=== PATIENT | male | born 1960 | race Caucasian/White ===

== ENCOUNTER 2023-12-12 17:05 | Inpatient (IN) | payer OTHER ==
[2023-12-12 17:49] VITALS: BMI 19.8
[2023-12-12] MEDS ORDERED: IBUPROFEN 400 MG TABLET (FP) PO PRN (18:50)
[2023-12-12] MEDS ORDERED: NICOTINE POLACRILEX 2 MG GUM BUC PRN (18:50)
[2023-12-12] MEDS ORDERED: guaiFENesin 600 MG TABLET.ER (FP) PO PRN (18:50)
[2023-12-12] MEDS ORDERED: LOPERAMIDE HCL 2 MG CAPSULE PO PRN (18:50)
[2023-12-12] MEDS ORDERED: P-EPHED 60MG/TRIPROLIDI 2.5MG TABLET PO PRN (18:50)
[2023-12-12] MEDS ORDERED: POLYETHYLENE GLYCOL (HEALTHYLAX) 3350 17 GM PACKET PO PRN (18:50)
[2023-12-12] MEDS ORDERED: ACETAMINOPHEN 325 MG TABLET (FP) PO PRN (18:50)
[2023-12-12] MEDS ORDERED: DICYCLOMINE HCL 10 MG CAPSULE PO PRN (18:50)
[2023-12-12] MEDS ORDERED: BENZONATATE 200 MG CAPSULE PO PRN (18:50)
[2023-12-12] MEDS ORDERED: BISMUTH SUBSALICYLATE 524 MG/30 ML PO PRN (18:50)
[2023-12-12] MEDS ORDERED: MAGNESIUM HYDROX 2400MG/30ML ORAL SUSPENSION 30 ML CUP PO PRN (18:50)
[2023-12-12] MEDS ORDERED: BENZOCAINE/MENTHOL (CHLORASEPTIC ) LOZENGE MM PRN (18:50)
[2023-12-12] MEDS ORDERED: ONDANSETRON *ODT* 4 MG TABLET SL PRN (18:50)
[2023-12-12] MEDS ORDERED: MELATONIN 5 MG TABLETS PO SCH (22:00)
[2023-12-12] MEDS: THIAMINE HCL 100 MG TABLET (FP) PO SCH (22:19)
[2023-12-13] MEDS ORDERED: chlordiazePOXIDE HCL 25 MG CAPSULE PO PRN (10:12)
[2023-12-13] MEDS: PRENATAL VITAMINS W/ FOLIC ACID TABLET (FP) PO SCH (10:30)
[2023-12-13] MEDS: chlordiazePOXIDE HCL 25 MG CAPSULE PO SCH ×3 (10:30→22:26)
[2023-12-13] MEDS: METHOCARBAMOL 500 MG TABLET PO PRN ×2 (10:31→22:28)
[2023-12-13 11:03] LABS: HEMOGLOBIN 13.3 GM/dL (11.7-16.9); MCH 31.8 pg (25.7-33.7); MCHC 34.2 g/dl (32.0-35.9); MEAN CELL VOLUME 93.1 fl (80-96); MEAN PLT VOLUME 7.5 fl (7.5-11.1); PLATELET COUNT 179 10^3/uL (134-434); RBC 4.19 M/mm3 (4.00-5.60); RDW 15.9 % (11.9-15.9); WHITE BLOOD COUNT 3.5 K/mm3 (4.0-10.0)
[2023-12-13] MEDS: NICOTINE 14 MG/24 HOURS TOPICAL PATCH TD SCH (11:20)
[2023-12-13 11:43] LABS: POTASSIUM 3.8 mmol/L (3.5-5.1)
[2023-12-13 11:45] LABS: BLOOD UREA NITROGEN 23.3 mg/dL (7-18); CALCIUM 9.5 mg/dL (8.5-10.1)
[2023-12-13 11:46] LABS: ALBUMIN 3.2 g/dl (3.4-5.0)
[2023-12-13 11:49] LABS: CREATININE 0.7 mg/dL (0.55-1.3)
[2023-12-13 11:50] LABS: BILIRUBIN,TOTAL 1.1 mg/dL (0.2-1); TOT PROT 8.8 g/dl (6.4-8.2)
[2023-12-13] MEDS: THIAMINE HCL 100 MG TABLET (FP) PO SCH (22:26)
[2023-12-13] MEDS: SUVOREXANT 10 MG TABLET PO PRN (22:27)
[2023-12-14] MEDS: chlordiazePOXIDE HCL 25 MG CAPSULE PO SCH ×2 (05:49→10:22)
[2023-12-14] MEDS: PRENATAL VITAMINS W/ FOLIC ACID TABLET (FP) PO SCH (10:22)
[2023-12-14] MEDS: NICOTINE 14 MG/24 HOURS TOPICAL PATCH TD SCH (10:22)
[2023-12-14] MEDS: IBUPROFEN 600 MG TABLET (FP) PO PRN (10:24)
[2023-12-14] MEDS: LORazepam 1 MG TABLET PO PRN (13:33)
[2023-12-14] MEDS: LORazepam 2 MG TABLET PO SCH ×2 (17:26→22:10)
[2023-12-14] MEDS: ATORVASTATIN CA 40 MG TABLET (FP) PO SCH (22:10)
[2023-12-14] MEDS: THIAMINE HCL 100 MG TABLET (FP) PO SCH (22:10)
[2023-12-14] MEDS: SUVOREXANT 10 MG TABLET PO PRN (22:11)
[2023-12-14] MEDS: METHOCARBAMOL 500 MG TABLET PO PRN (22:12)
[2023-12-15] MEDS ORDERED: chlordiazePOXIDE HCL 25 MG CAPSULE PO SCH (05:00)
[2023-12-15] MEDS: LORazepam 1 MG TABLET PO SCH ×4 (05:34→22:03)
[2023-12-15] MEDS ORDERED: HYDROCHLOROTHIAZIDE 50 MG TABLET PO SCH (10:00)
[2023-12-15] MEDS ORDERED: PATIENT'S OWN MEDICATION (NON-FORMULARY) (Doravirine/Lamivu/Tenofov Diso [Delstrigo 100-30 PO SCH (10:00)
[2023-12-15] MEDS ORDERED: PATIENT'S OWN MEDICATION (NON-FORMULARY) (Omeprazole 20 MG Capsule.Dr) PO SCH (10:00)
[2023-12-15] MEDS: PRENATAL VITAMINS W/ FOLIC ACID TABLET (FP) PO SCH (10:03)
[2023-12-15] MEDS: ASPIRIN 81 MG CHEWABLE TABLETS PO SCH (10:03)
[2023-12-15] MEDS: FINASTERIDE 5 MG TABLET (FP) PO SCH (10:04)
[2023-12-15] MEDS: LISINOPRIL 20 MG TABLET PO SCH (10:04)
[2023-12-15] MEDS: HYDROCHLOROTHIAZIDE 25 MG TABLET (FP) PO SCH (10:04)
[2023-12-15] MEDS: PANTOPRAZOLE 40 MG TABLET PO SCH (10:04)
[2023-12-15] MEDS: IBUPROFEN 600 MG TABLET (FP) PO PRN (10:04)
[2023-12-15] MEDS: amLODIPine BESYLATE 10 MG TABLET (FP) PO SCH (10:04)
[2023-12-15] MEDS: TAMSULOSIN HCL 0.4 MG CAP PO SCH (10:04)
[2023-12-15] MEDS: NICOTINE 14 MG/24 HOURS TOPICAL PATCH TD SCH (10:06)
[2023-12-15] MEDS: LORazepam 2 MG TABLET PO SCH (11:51)
[2023-12-15] MEDS: LORazepam 1 MG TABLET PO PRN (13:31)
[2023-12-15] MEDS: MAG HYDROX/AL HYDROX/SIMETH 30 ML UNIT-DOSE CUP PO PRN (13:31)
[2023-12-15 15:09] LABS: ALBUMIN 3.4 g/dl (3.4-5.0)
[2023-12-15 15:11] LABS: BILIRUBIN,DIRECT 0.3 mg/dL (0.0-0.2)
[2023-12-15 15:13] LABS: BILIRUBIN,TOTAL 0.5 mg/dL (0.2-1); TOT PROT 8.5 g/dl (6.4-8.2)
[2023-12-15] MEDS ORDERED: ATORVASTATIN CA 20 MG TABLET (FP) ONE (20:49)
[2023-12-15] MEDS: SUVOREXANT 10 MG TABLET PO PRN (22:01)
[2023-12-15] MEDS: THIAMINE HCL 100 MG TABLET (FP) PO SCH (22:01)
[2023-12-15] MEDS: ATORVASTATIN CA 40 MG TABLET (FP) PO SCH (22:02)
[2023-12-15] MEDS: METHOCARBAMOL 500 MG TABLET PO PRN (22:03)
[2023-12-16] MEDS ORDERED: LORazepam 0.5 MG TABLET PO PRN
[2023-12-16] MEDS ORDERED: chlordiazePOXIDE HCL 10 MG CAPSULE PO PRN
[2023-12-16] MEDS ORDERED: chlordiazePOXIDE HCL 10 MG CAPSULE PO SCH (05:00)
[2023-12-16] MEDS: LORazepam 0.5 MG TABLET PO SCH ×4 (05:10→22:13)
[2023-12-16] MEDS: LISINOPRIL 20 MG TABLET PO SCH (10:03)
[2023-12-16] MEDS: PRENATAL VITAMINS W/ FOLIC ACID TABLET (FP) PO SCH (10:03)
[2023-12-16] MEDS: amLODIPine BESYLATE 10 MG TABLET (FP) PO SCH (10:03)
[2023-12-16] MEDS: TAMSULOSIN HCL 0.4 MG CAP PO SCH (10:03)
[2023-12-16] MEDS: ASPIRIN 81 MG CHEWABLE TABLETS PO SCH (10:03)
[2023-12-16] MEDS: FINASTERIDE 5 MG TABLET (FP) PO SCH (10:03)
[2023-12-16] MEDS: HYDROCHLOROTHIAZIDE 25 MG TABLET (FP) PO SCH (10:04)
[2023-12-16] MEDS: NICOTINE 14 MG/24 HOURS TOPICAL PATCH TD SCH (10:04)
[2023-12-16] MEDS: PANTOPRAZOLE 40 MG TABLET PO SCH (10:04)
[2023-12-16] MEDS: MAG HYDROX/AL HYDROX/SIMETH 30 ML UNIT-DOSE CUP PO PRN (17:23)
[2023-12-16] MEDS ORDERED: ATORVASTATIN CA 20 MG TABLET (FP) ONE (21:05)
[2023-12-16] MEDS: THIAMINE HCL 100 MG TABLET (FP) PO SCH (22:12)
[2023-12-16] MEDS: METHOCARBAMOL 500 MG TABLET PO PRN (22:12)
[2023-12-16] MEDS: ATORVASTATIN CA 40 MG TABLET (FP) PO SCH (22:13)
[2023-12-17] MEDS ORDERED: LORazepam 0.5 MG TABLET PO ONE (05:00)
[2023-12-17] MEDS ORDERED: chlordiazePOXIDE HCL 10 MG CAPSULE PO SCH (05:00)
[2023-12-17 05:52] VITALS: TEMP 97.8
[2023-12-17 09:03] VITALS: BP 131/81; PULSE 81; RESP 18
[2023-12-18] MEDS ORDERED: chlordiazePOXIDE HCL 10 MG CAPSULE PO ONE (05:00)
== END 2023-12-17 09:36 | disposition home or self-care (01) | DRG 775 ==
LOC: YASAS 17:05 → Y3N 18:22
PROVIDERS: ADMIT Allergy & Immunology; ATTEND Allergy & Immunology
PROC: HZ2ZZZZ Detoxification Services for Substance Abuse Treatment (ICD-10-PCS; principal; 2023-12-12)
DX: F10.230 Alcohol dependence with withdrawal, uncomplicated (principal); F17.210 Nicotine dependence, cigarettes, uncomplicated; F10.282 Alcohol dependence with alcohol-induced sleep disorder; F10.280 Alcohol dependence with alcohol-induced anxiety disorder; F10.24 Alcohol dependence with alcohol-induced mood disorder; Z21 Asymptomatic human immunodeficiency virus [HIV] infection status; E78.5 Hyperlipidemia, unspecified; I10 Essential (primary) hypertension; K74.60 Unspecified cirrhosis of liver; R74.8 Abnormal levels of other serum enzymes; Z56.0 Unemployment, unspecified
CPT/HCPCS: 36415; 80053; 80076; 85027; 86780; 87635; Q0162

== ENCOUNTER 2024-02-08 17:55 | Inpatient (IN) | payer OTHER ==
[2024-02-08 20:45] VITALS: BMI 21.2
[2024-02-08] MEDS ORDERED: BENZOCAINE/MENTHOL (CHLORASEPTIC ) LOZENGE MM PRN (21:00)
[2024-02-08] MEDS ORDERED: IBUPROFEN 400 MG TABLET (FP) PO PRN (21:00)
[2024-02-08] MEDS ORDERED: IBUPROFEN 600 MG TABLET (FP) PO PRN (21:00)
[2024-02-08] MEDS ORDERED: DICYCLOMINE HCL 10 MG CAPSULE PO PRN (21:00)
[2024-02-08] MEDS ORDERED: LOPERAMIDE HCL 2 MG CAPSULE PO PRN (21:00)
[2024-02-08] MEDS ORDERED: POLYETHYLENE GLYCOL (HEALTHYLAX) 3350 17 GM PACKET PO PRN (21:00)
[2024-02-08] MEDS ORDERED: BISMUTH SUBSALICYLATE 524 MG/30 ML PO PRN (21:00)
[2024-02-08] MEDS ORDERED: guaiFENesin 600 MG TABLET.ER (FP) PO PRN (21:00)
[2024-02-08] MEDS ORDERED: MAG HYDROX/AL HYDROX/SIMETH 30 ML UNIT-DOSE CUP PO PRN (21:00)
[2024-02-08] MEDS ORDERED: P-EPHED 60MG/TRIPROLIDI 2.5MG TABLET PO PRN (21:00)
[2024-02-08] MEDS ORDERED: MAGNESIUM HYDROX 2400MG/30ML ORAL SUSPENSION 30 ML CUP PO PRN (21:00)
[2024-02-08] MEDS ORDERED: BENZONATATE 200 MG CAPSULE PO PRN (21:00)
[2024-02-08] MEDS ORDERED: ONDANSETRON *ODT* 4 MG TABLET SL PRN (21:00)
[2024-02-08] MEDS ORDERED: amLODIPine BESYLATE 5 MG TABLET (FP) ONE (21:12)
[2024-02-08] MEDS ORDERED: ASPIRIN 81 MG CHEWABLE TABLETS ONE (21:13)
[2024-02-08] MEDS ORDERED: ASPIRIN 325 MG ENTERIC COATED TABLET (FP) PO ONE (21:15)
[2024-02-08] MEDS: ASPIRIN 325 MG TABLET PO ONE (21:21)
[2024-02-08] MEDS: amLODIPine BESYLATE 10 MG TABLET (FP) PO ONE (21:21)
[2024-02-08] MEDS: ASPIRIN COATED 81 MG TABLET.EC PO ONE (21:22)
[2024-02-08] MEDS: LORazepam 1 MG TABLET PO PRN (21:24)
[2024-02-08] MEDS: THIAMINE 100 MG TABLET PO SCH (21:59)
[2024-02-08] MEDS: MELATONIN 5 MG TABLETS PO SCH (21:59)
[2024-02-08] MEDS: LORazepam 2 MG TABLET PO SCH (23:10)
[2024-02-09] MEDS: PRENATAL VITAMINS W/ FOLIC ACID TABLET (FP) PO SCH (10:08)
[2024-02-09] MEDS: NICOTINE 14 MG/24 HOURS TOPICAL PATCH TD SCH (10:09)
[2024-02-09 14:58] LABS: POTASSIUM 3.1 mmol/L (3.5-5.1)
[2024-02-09 15:02] LABS: HEMOGLOBIN 13.1 GM/dL (11.7-16.9); MCH 35.1 pg (25.7-33.7); MCHC 35.3 g/dl (32.0-35.9); MEAN CELL VOLUME 99.5 fl (80-96); MEAN PLT VOLUME 7.9 fl (7.5-11.1); PLATELET COUNT 174 10^3/uL (134-434); RBC 3.72 M/mm3 (4.00-5.60); RDW 14.1 % (11.9-15.9); WHITE BLOOD COUNT 4.2 K/mm3 (4.0-10.0)
[2024-02-09 15:03] LABS: ALBUMIN 3.2 g/dl (3.4-5.0); BLOOD UREA NITROGEN 11.8 mg/dL (7-18)
[2024-02-09 15:06] LABS: CREATININE 0.6 mg/dL (0.55-1.3)
[2024-02-09 15:07] LABS: BILIRUBIN,TOTAL 1.6 mg/dL (0.2-1); TOT PROT 7.8 g/dl (6.4-8.2)
[2024-02-09] MEDS: amLODIPine BESYLATE 10 MG TABLET (FP) PO SCH (21:40)
[2024-02-10] MEDS: LORazepam 1 MG TABLET PO SCH (05:22)
[2024-02-10 09:54] VITALS: BP 129/83; PULSE 67; RESP 16; TEMP 97.8
[2024-02-10] MEDS ORDERED: LISINOPRIL 20 MG TABLET PO SCH ×2 (10:00→14:00)
[2024-02-10] MEDS ORDERED: HYDROCHLOROTHIAZIDE 50 MG TABLET PO SCH (10:00)
[2024-02-10] MEDS ORDERED: ASPIRIN 81 MG CHEWABLE TABLETS PO SCH (10:00)
[2024-02-10] MEDS ORDERED: PATIENT'S OWN MEDICATION (NON-FORMULARY) (Doravirine/Lamivu/Tenofov Diso [Delstrigo 100-30 PO SCH (10:00)
[2024-02-10] MEDS: POTASSIUM CHLORIDE ORAL LIQUID 20 MEQ/15 ML PO SCH (10:04)
[2024-02-10] MEDS ORDERED: ATORVASTATIN CA 40 MG TABLET (FP) PO SCH (22:00)
[2024-02-11] MEDS ORDERED: LORazepam 0.5 MG TABLET PO PRN
[2024-02-11] MEDS ORDERED: LORazepam 0.5 MG TABLET PO SCH (05:00)
[2024-02-11] MEDS ORDERED: TAMSULOSIN HCL 0.4 MG CAP PO SCH (08:00)
[2024-02-12] MEDS ORDERED: LORazepam 0.5 MG TABLET PO ONE (05:00)
== END 2024-02-10 11:29 | disposition left against medical advice (07) | DRG 770 ==
LOC: YASAS 17:55 → Y6N 21:19
PROVIDERS: ADMIT Allergy & Immunology; ATTEND Surgery
PROC: HZ2ZZZZ Detoxification Services for Substance Abuse Treatment (ICD-10-PCS; principal; 2024-02-08)
DX: F10.230 Alcohol dependence with withdrawal, uncomplicated (principal); F11.20 Opioid dependence, uncomplicated; F17.210 Nicotine dependence, cigarettes, uncomplicated; Z21 Asymptomatic human immunodeficiency virus [HIV] infection status; E87.6 Hypokalemia; E78.5 Hyperlipidemia, unspecified; I10 Essential (primary) hypertension; K70.30 Alcoholic cirrhosis of liver without ascites; N40.0 Benign prostatic hyperplasia without lower urinary tract symptoms; R73.9 Hyperglycemia, unspecified; R74.8 Abnormal levels of other serum enzymes
CPT/HCPCS: 36415; 80053; 80305; 85027; 86780

== ENCOUNTER 2024-05-11 10:18 | Inpatient (IN) | payer OTHER ==
[2024-05-11 11:00] VITALS: BMI 19.9
[2024-05-11] MEDS ORDERED: ACETAMINOPHEN 325 MG TABLET (FP) PO PRN (13:06)
[2024-05-11] MEDS ORDERED: MAGNESIUM HYDROX 2400MG/30ML ORAL SUSPENSION 30 ML CUP PO PRN (13:06)
[2024-05-11] MEDS ORDERED: IBUPROFEN 600 MG TABLET (FP) PO PRN (13:06)
[2024-05-11] MEDS ORDERED: IBUPROFEN 400 MG TABLET (FP) PO PRN (13:06)
[2024-05-11] MEDS ORDERED: POLYETHYLENE GLYCOL (HEALTHYLAX) 3350 17 GM PACKET PO PRN (13:06)
[2024-05-11] MEDS ORDERED: LOPERAMIDE HCL 2 MG CAPSULE PO PRN (13:06)
[2024-05-11] MEDS ORDERED: NALOXONE HCL 0.4 MG/ML VIAL IM PRN (13:06)
[2024-05-11] MEDS ORDERED: DICYCLOMINE HCL 10 MG CAPSULE PO PRN (13:06)
[2024-05-11] MEDS ORDERED: BENZONATATE 200 MG CAPSULE PO PRN (13:06)
[2024-05-11] MEDS ORDERED: diazePAM 5 MG TABLET PO PRN (13:06)
[2024-05-11] MEDS ORDERED: NALOXONE (NARCAN) HCL 4 MG/0.1 ML SPRAY NS PRN (13:06)
[2024-05-11] MEDS ORDERED: guaiFENesin 600 MG TABLET.ER (FP) PO PRN (13:06)
[2024-05-11] MEDS ORDERED: BISMUTH SUBSALICYLATE 524 MG/30 ML PO PRN (13:06)
[2024-05-11] MEDS ORDERED: BENZOCAINE/MENTHOL (CHLORASEPTIC ) LOZENGE MM PRN (13:06)
[2024-05-11] MEDS: methaDONE HCL 10 MG TABLET (FOR DETOX USE ONLY) PO ONE (13:46)
[2024-05-11] MEDS: METHOCARBAMOL 500 MG TABLET PO PRN (15:45)
[2024-05-11] MEDS: hydrOXYzine PAMOATE 25 MG CAPSULE (FP) PO PRN (15:45)
[2024-05-11] MEDS: diazePAM 5 MG TABLET PO SCH (16:55)
[2024-05-11] MEDS: ATORVASTATIN CA 40 MG TABLET (FP) PO SCH (22:03)
[2024-05-11] MEDS: MELATONIN 5 MG TABLETS PO SCH (22:03)
[2024-05-11] MEDS: THIAMINE 100 MG TABLET PO SCH (22:03)
[2024-05-12] MEDS: cloNIDine HCL 0.1 MG TABLET PO PRN (05:48)
[2024-05-12 08:50] LABS: HEMATOCRIT 38.3 % (35.4-49); HEMOGLOBIN 13.6 GM/dL (11.7-16.9); MCH 35.3 pg (25.7-33.7); MCHC 35.5 g/dl (32.0-35.9); MEAN CELL VOLUME 99.5 fl (80-96); MEAN PLT VOLUME 8.2 fl (7.5-11.1); PLATELET COUNT 174 10^3/uL (134-434); RBC 3.85 M/mm3 (4.00-5.60); RDW 13.7 % (11.9-15.9); WHITE BLOOD COUNT 3.8 K/mm3 (4.0-10.0)
[2024-05-12 09:04] LABS: CHLORIDE 97 mmol/L (98-107); POTASSIUM 3.3 mmol/L (3.5-5.1); SODIUM 133 mmol/L (136-145)
[2024-05-12 09:08] LABS: ALBUMIN 2.9 g/dl (3.4-5.0); ANION GAP 5 mmol/L (4-13); BLOOD UREA NITROGEN 10.2 mg/dL (7-18); CO2 30 mmol/L (21-32); GLUCOSE,RANDOM 154 mg/dL (74-106)
[2024-05-12 09:11] LABS: CREATININE 0.6 mg/dL (0.55-1.3); SGOT/AST 302 U/L (15-37); SGPT/ALT 133 U/L (13-61)
[2024-05-12 09:12] LABS: BILIRUBIN,TOTAL 2.6 mg/dL (0.2-1); TOT PROT 8.5 g/dl (6.4-8.2)
[2024-05-12 09:13] LABS: ALK PHOS 141 U/L (45-117)
[2024-05-12] MEDS: TAMSULOSIN HCL 0.4 MG CAP PO SCH (09:25)
[2024-05-12] MEDS: PANTOPRAZOLE 40 MG TABLET PO SCH (09:25)
[2024-05-12] MEDS: amLODIPine BESYLATE 10 MG TABLET (FP) PO SCH (09:25)
[2024-05-12] MEDS: ASPIRIN 81 MG CHEWABLE TABLETS PO SCH (09:25)
[2024-05-12] MEDS: PRENATAL VITAMINS W/ FOLIC ACID TABLET (FP) PO SCH (09:26)
[2024-05-12] MEDS: LISINOPRIL 20 MG TABLET PO SCH (09:26)
[2024-05-12] MEDS: NICOTINE 21 MG/24 HOURS TOPICAL PATCH TD SCH (09:26)
[2024-05-12] MEDS ORDERED: PATIENT'S OWN MEDICATION (NON-FORMULARY) (Doravirine/Lamivu/Tenofov Diso [Delstrigo 100-30 PO SCH (10:00)
[2024-05-12] MEDS: FINASTERIDE 5 MG TABLET (FP) PO SCH (10:57)
[2024-05-12] MEDS: HYDROCHLOROTHIAZIDE 25 MG TABLET (FP) PO SCH (10:58)
[2024-05-12] MEDS: POTASSIUM CHLORIDE ORAL LIQUID 20 MEQ/15 ML PO SCH (11:00)
[2024-05-12] MEDS: HYDROCHLOROTHIAZIDE 50 MG TABLET PO SCH (11:06)
[2024-05-12] MEDS: BICTEGRAV/EMTRICIT/TENOFOV (BIKTARVY) 50-200-25 MG TABLET PO SCH (12:00)
[2024-05-12] MEDS: SUVOREXANT 10 MG TABLET PO PRN (22:02)
[2024-05-13] MEDS: diazePAM 5 MG TABLET PO SCH (05:22)
[2024-05-13] MEDS: methaDONE HCL 10 MG TABLET (FOR DETOX USE ONLY) PO ONE (09:19)
[2024-05-14] MEDS: diazePAM 5 MG TABLET PO SCH (05:39)
[2024-05-14] MEDS: ONDANSETRON *ODT* 4 MG TABLET SL PRN (11:27)
[2024-05-14] MEDS: MAG HYDROX/AL HYDROX/SIMETH 30 ML UNIT-DOSE CUP PO PRN (14:51)
[2024-05-15] MEDS: diazePAM 5 MG TABLET PO ONE (05:34)
[2024-05-15 06:40] VITALS: BP 135/73; PULSE 81; RESP 16; TEMP 97.7
[2024-05-15] MEDS ORDERED: methaDONE HCL 10 MG TABLET (FOR DETOX USE ONLY) PO ONE (10:00)
== END 2024-05-15 08:46 | disposition home or self-care (01) | DRG 773 ==
LOC: YASAS 10:18 → Y6N 12:53
PROVIDERS: ADMIT Allergy & Immunology; ATTEND Surgery
PROC: HZ2ZZZZ Detoxification Services for Substance Abuse Treatment (ICD-10-PCS; principal; 2024-05-11)
DX: F11.23 Opioid dependence with withdrawal (principal); F10.230 Alcohol dependence with withdrawal, uncomplicated; F17.213 Nicotine dependence, cigarettes, with withdrawal; F19.280 Other psychoactive substance dependence with psychoactive substance-induced anxiety disorder; F19.282 Other psychoactive substance dependence with psychoactive substance-induced sleep disorder; Z21 Asymptomatic human immunodeficiency virus [HIV] infection status; E87.6 Hypokalemia; E78.5 Hyperlipidemia, unspecified; I25.10 Atherosclerotic heart disease of native coronary artery without angina pectoris; I10 Essential (primary) hypertension; K21.9 Gastro-esophageal reflux disease without esophagitis; K70.30 Alcoholic cirrhosis of liver without ascites; N40.0 Benign prostatic hyperplasia without lower urinary tract symptoms; R73.9 Hyperglycemia, unspecified; B18.2 Chronic viral hepatitis C; R74.8 Abnormal levels of other serum enzymes; Z79.899 Other long term (current) drug therapy
CPT/HCPCS: 36415; 80053; 80305; 80307; 85027; 86780; 93005; 93010; Q0162